=== PATIENT | female | born 1970 | race Caucasian/White ===

== ENCOUNTER → 2016-11-13 | Outpatient (CLI) | payer MEDICARE, OTHER ==
[~2016-11-13] MED LIST: AMBIEN10 MG PO; CENESTIN1.25 MG PO; COLACE PO; CRESTOR PO; DEXILANT60 MG PO; FENOFIBRATE160 MG PO; FISH OIL 1,0001 CA2; FLEXERIL10 MG PO; HYDROCHLOROTHIA25 MG PO; KLONOPIN1 MG PO; LISINOPRIL10 MG PO; LOPRESSOR HCT1 EACH PO; LORTAB 7.5-3251 EACH PO; METFORMIN HCL500 M1 PO; METOPROLOL TAR25 MG PO; MOBIC15 MG PO; MULTI VITAMIN1 EACH PO; MULTI-DAY VITAM1 TAB PO; NEURONTIN600 MG PO; OXYCODONE-APAP1 EAC5 PO; PERCOCET 10/3251 TAB PO; PERCOCET 7.5-31 EACH PO; PERCOCET10 PO; PERCOCET5/325 PO; PREMARIN0.625 MG PO; TRAMADOL HCL50 M1 PO; TRICOR145 MG PO; VITAMIN D5000 UNIT PO; ZESTRIL40 MG PO; ZOLOFT100 MG PO
--- NOTE | ~2016-11-13 | NM19 ---
[facility] A Service of [facility] & [facility] RADIOLOGY TEXT RESULTS PATIENT: LOVE NEGRETE LOCATION: [facility] : 66 UNIT #: [id number] AGE: [address]: Fredo Finley MD SEX: F ORDER DR: [id number] [facility] [address] [place], [place] [address] [id number] O MR#: [id number] Acc #: [id number] NAME: LOVE NEGRETE : 1970 SEX: F STUDY DATE/TIME: 11/13/2016 10:30 UNIT: [facility] ROOM: STUDY DESCRIPTION: NM Gastric Emptying Study Attending Physician: Fredo Finley M.D. Referring Physician: Fredo Finley M.D. Ordering Physician: Fredo Finley M.D. Primary Care Physician: Siddhartha Horvath M.D. MEDICAL IMAGING REPORT This report is preliminary unless electronic signature is present EXAM Gastric emptying scan. DATE OF EXAM 11/13/2016 HISTORY Abdominal pain, nausea and vomiting after eating a meal. Generalized abdominal pain with pressure in the abdomen. Symptoms began 2 months ago. FINDINGS The patient ingested 534 mcCi of technetium-99m tagged sulfur colloid in eggs. Images of the upper abdomen were obtained for 75 minutes. The gastric-half emptying time was 68 minutes (normal is between 65 and 90 minutes). IMPRESSION Normal gastric half-emptying time of 68 minutes. Dictated by... Percy Altamirano M.D. THIS IS AN ELECTRONICALLY VERIFIED REPORT Percy Altamirano M.D. at 11/13/2016 5:11 PM LUKAS/carmel TD: 11/13/2016 16:18 JOB #: [id number] MEDICAL IMAGING REPORT Page 1 of 1 COPY
== END | disposition home or self-care (01) ==
LOC: CNUC 09:52
DX: R10.9 Unspecified abdominal pain (principal)
CPT/HCPCS: 78264; A9541

== ENCOUNTER → 2016-12-01 | Outpatient (CLI) | payer MEDICARE, OTHER ==
--- NOTE | ~2016-12-01 | CT2 ---
[facility] A Service of [facility] RADIOLOGY TEXT RESULTS PATIENT: LOVE NEGRETE LOCATION: [facility] : 66 UNIT #: [id number] AGE: [address]: Fredo Finley MD SEX: F ORDER DR: [id number] [facility] [place], [place] [address] [id number] O MR#: [id number] Acc #: [id number] NAME: LOVE NEGRETE : 1970 SEX: F STUDY DATE/TIME: 12/01/2016 14:08 UNIT: [facility] ROOM: STUDY DESCRIPTION: CT Abd and Pelv W Cont Attending Physician: Fredo Finley M.D. Referring Physician: Fredo Finley M.D. Ordering Physician: Fredo Finley M.D. Primary Care Physician: Siddhartha Horvath M.D. MEDICAL IMAGING REPORT This report is preliminary unless electronic signature is present EXAM CT abdomen and pelvis with contrast INDICATION Abdominal pain for the past 3 months. Epigastric region with nausea. PROCEDURE Contrast-enhanced CT of the abdomen and pelvis. 100 mL Isovue-370. TECHNIQUE This CT exam was performed with one or more of the following radiation dose reduction techniques: automatic exposure control, adjustment of mA and/or kV according to patient size, and iterative reconstruction. COMPARISON 10/25/2014 FINDINGS ABDOMEN WITH CONTRAST: Included lung bases are clear. Right hepatic lobe elongated measuring 21.3 cm. No liver or splenic mass. Kidneys, adrenal glands, pancreas unremarkable. Previous cholecystectomy. Uncomplicated left colonic diverticula. The bowel loops are nondilated. Complex mid abdominal ventral hernias. The hernia measures approximately 14.3 cm in diameter with a neck of approximately 10.6 cm. The hernia sac contains multiple small bowel loops that are nondilated and show no thickening. The hernia measures up to 11.2 cm in craniocaudal extent. The previously demonstrated fluid collection in this region has resolved. PELVIS WITH CONTRAST: Previous hysterectomy. No pelvic mass or fluid. No aggressive appearing bone lesion. [facility] A Service of [facility] RADIOLOGY TEXT RESULTS PATIENT: LOVE NEGRETE [id number] [birth year] UNIT #: [id number] AGE: [address]: Fredo Finley MD SEX: F ORDER DR: IMPRESSION Complex wide mid abdominal ventral hernia containing small bowel loops. No definite complicating features on CT. This is new compared with the previous study. Previously there was a fluid collection in this region which has resolved. Dictated by... Imtiaz Damian M.D. THIS IS AN ELECTRONICALLY VERIFIED REPORT Imtiaz Damian M.D. at 12/02/2016 1:56 PM Adam TD: 12/01/2016 15:42 JOB #: [id number] MEDICAL IMAGING REPORT Page 1 of 1 COPY
[2016-12-01 15:00] LABS: POC - CREATININE 0.86 mg/dL (0.44-1.03); POC - GFR >60.0 mL/min (>60)
== END | disposition home or self-care (01) ==
LOC: CCAT 11-24 13:40
PROVIDERS: Specialist
DX: R10.9 Unspecified abdominal pain (principal); K43.9 Ventral hernia without obstruction or gangrene
CPT/HCPCS: 74177; 82565; Q9967